=== PATIENT | female | born 1955 | race Caucasian/White ===

== ENCOUNTER 2023-08-30 07:12 | Outpatient (OUT) | payer MEDICARE, SELFPAY ==
[2023-08-30 07:39] LABS: Basophils Absolute Auto 0.1 10^3/uL (0.0-0.1); Eosinophils Absolute Auto 0.2 10^3/uL (0.0-0.7); Eosinophils Percent Auto 3.3 % (0.9-7.0); Hematocrit 43.6 % (36.0-48.0); Hemoglobin 14.4 g/dL (12.0-16.0); Immature Granulocytes Abs Auto 0.01 10^3/uL (0.00-0.03); Immature Granulocytes Pct Auto 0.2 % (0.0-0.5); Lymphocytes Percent Auto 34.9 % (20.5-60.0); Mean Corpuscular Hemoglobin 30.3 pg (26.7-34.0); Mean Corpuscular Volume 91.8 fL (81.0-99.0); Mean Platelet Volume 10.9 fL (9.5-13.5); Monocytes Absolute Auto 0.4 10^3/uL (0.3-0.8); Monocytes Percent Auto 6.9 % (1.7-12.0); Neutrophils Absolute Auto 3.1 10^3/uL (1.4-6.5); Neutrophils Percent Auto 53.7 % (43.0-75.0); Platelet Count 281 10^3/uL (150-450); Red Blood Count 4.75 10^6/uL (4.20-5.40); Red Cell Distribution Width 14.3 % (11.0-15.0); White Blood Count 5.8 10^3/uL (4.0-11.0)
[2023-08-30 07:51] LABS: Estimated Average Glucose 120 mg/dL; Glycohemoglobin A1C 5.8 % (4.5-6.2)
[2023-08-30 08:06] LABS: Alanine Aminotransferase 21 U/L (14-59); Albumin Globulin Ratio 0.9; Albumin Level 3.3 g/dL (3.4-5.0); Alkaline Phosphatase 74 U/L (46-116); Anion Gap 9.7; Aspartate Amino Transferase 13 U/L (15-37); BUN Creatinine Ratio 16.7; Bilirubin Total 0.5 mg/dL (0.2-1.0); Calcium 9.3 mg/dL (8.5-10.1); Carbon Dioxide 30.8 mmol/L (21.0-32.0); Chloride 103 mmol/L (98-107); Cholesterol 226 mg/dL (<=200); Estimated GFR (African America >60 (>=60); Estimated GFR (Non-African Ame >60 (>=60); Free T3 2.83 pg/mL (2.18-3.98); Globulin 3.8 g/dL; Glucose 106 mg/dL (74-106); HDL Cholesterol 56 mg/dL (40-60); Potassium 4.5 mmol/L (3.5-5.1); Sodium 139 mmol/L (136-145); Thyroid Stimulating Hormone 2.347 uIU/mL (0.358-3.740); Total Protein 7.1 g/dL (6.4-8.2); Triglycerides 115 mg/dL (<=150)
== END 2023-08-30 07:13 | disposition home or self-care (01) ==
LOC: LAB 07:16
PROVIDERS: Family Provider Family Medicine; PCP Family Medicine; Visit Provider Family Medicine
DX: H34.9 Unspecified retinal vascular occlusion (principal); G51.0 Bell's palsy; E78.5 Hyperlipidemia, unspecified; R73.09 Other abnormal glucose; D64.9 Anemia, unspecified
CPT/HCPCS: 36415; 80053; 80061; 83036; 83540; 84436; 84443; 84481; 85025

== ENCOUNTER 2023-09-06 07:05 | Outpatient (OUT) | payer MEDICARE, SELFPAY ==
--- OUTSIDE RECORDS SUMMARY | 2023-09-06 07:09 | XMS_ITS | CCD ---
Author Name Unknown Address [address] [facility] [address] [place] [address] Organization [facility] Care Team Providers Care Hardwood Floor Installation Helper Name Role Phone NO, PHYSICIAN Unavailable Unavailable Elgin Mahan Referring Unavailable Elgin Mahan Primary Care Unavailable Self, Referral Attending Unavailable Self, Referral Admitting Unavailable MD Elgin Mahan Primary Care Provider [phone] MD Elgin Mahan Referring Provider Self, Referral Attending Provider Unavailable Daniel Mcclendon Unavailable Marbin LEE Attending Unavailable Elgin Mahan Referring Unavailable Medications Current Medications Medication Drug Class(es) Dates Sig (Normalized) Sig (Original) ibuprofen 200 mg oral tablet (1 source) Nonsteroidal Anti-inflammatory Drug Problems Problem Classification Problem Date Documented Da te Episodic/Chronic Osteoarthritis (3 sources) Primary gonarthrosis, bilateral; Translations: [Bilateral primary osteoarthritis of knee] Chronic Other nervous system disorders (1 source) Chronic pain; Translations: [Other chronic pain] Chronic Other nervous system disorders (1 source) Other chronic pain Chronic Other non-traumatic joint disorders (1 source) Pain in right knee Episodic Other non-traumatic joint disorders (1 source) Pain in left knee Episodic Results Test Name Value Interpretation Reference Range Facil ity Physician Referralon 024 Physician Referral [id number] #1.00TIFF Normal [facility] Physician Referral [id number] #1.00TIFF Normal [facility] MM screening mammo BI w/CADo n 11-24-2022 MM screening mammo BI w/CAD [facility] Main [address] [address] Mammography Report Signed Patient: Stella Diaz MR#: [id number] : 1955 Acct:[id number] Age/Sex: 67 / F ADM Date: 11/24/22 Loc: ID Room: Type: [facility] Attending Dr: Referral Self Copies to: Elgin Mahan MD SELF,REFERRAL Ordering Provider: SELF,REFERRAL Date of Service: 11/24/22 MM/MM screening mammo BI w/CAD: SCREENING BILATERAL Screening Full Field digital mammogram with 3-D imaging. Full field digital CC and MLO imaging performed. CAD utilized. COMPARISON: 06/14/2015 HISTORY: Annual screening BREAST COMPOSITION: The breast is almost entirely fatty. BENIGN BREAST CALCIFICATIONS: Present VASCULAR CALCIFICATIONS: None DEVELOPING ARCHITECTURAL DISTORTION: None DEVELOPING BREAST NODULE: None DEVELOPING MALIGNANT CALCIFICATIONS: None AXILLARY LYMPH NODES: Normal POSTSURGICAL CHANGES: None MM/MM screening mammo BI w/CAD IMPRESSION: No mammographic evidence of malignancy. Routine follow-up recommended in one year. RESULT CODE: 2 Benign Findings(s) DENSITY CODE: 1 (<25% glandular) FOLLOW UP: 1YR THE FALSE-NEGATIVE RATE OF MAMMOGRAPHY IS APPROXIMATELY 10%. IMAGING OF A PALPABLE ABNORMALITY MUST BE BASED ON CLINICAL GROUNDS. PATIENT WAS ENTERED INTO A REMINDER SYSTEM WITH A TARGET DUE DATE FOR THE NEXT MAMMOGRAM. Impression dictated by: Sachin Gabriel M.D.11/24/2022 10:56 AM Dictation Location: [facility] Transcribed By: [facility] 11/24/22 1056 Dictated By: Sachin Gabriel DO 11/24/22 1047 Signed By: 11/24/22 1056 [facility] Vital Signs Date Time Vital Sign Value Performing Clinician Facility 01-11-2023 09:30-0400 Body height 157.48 cm Daniel Mcclendon Other [facility] Other 01-11-2023 09:30-0400 Body mass index (BMI) [Ratio] 33.28 kg/m2 Daniel Mcclendon Other [facility] Other 01-11-2023 09:30-0400 Body weight 82.56 kg Daniel Cleaning [facility] Other 01-11-2023 09:30-0400 Diastolic blood pressure 80 mm[Hg] Daniel Laddky Other [facility] Other 01-11-2023 09:30-0400 SaO2% (BldA) [Mass fraction] 98 % Daniel Hakan Other [facility] Other 01-11-2023 09:30-0400 Systolic blood pressure 122 mm[Hg] Daniel Hakan Other [facility] Other Encounters Encounter Date Encounter Type Care Provider Facility Start: 10-04-2023 ambulatory Marbin LEE Facility :[facility] Start: 08-29-2023 ambulatory Marbin LEE Facility: [facility] Start: 01-11-2023 End: 01-11-2023 ambulatory Daniel Hakan Other [facility] Other Start: 01-11-2023 Office consultation new/estab patient 60 min Daniel Mcclendon [facility] Start: 11-24-2022 End: 11-24-2022 ambulatory Elgin Mahan Facility:[facility] Start: 11-24-2022 End: 11-24-2022 ambulatory MD Elgin Mahan Work Phone: [facility] Work Phone: Start: 11-24-2022 End: 11-24-2022 Patient encounter procedure MD Elgin Mahan Work Phone: [facility] Work Phone: Start: 07-12-2017 Ambulatory PHYSICIAN NO [facility] Procedures Date Procedure Procedure Detail Performing Clinician Start: 11-24-2022 Screening mammograph y of bilateral breasts MD Elgin Mahan Work Phone: Payers Date Payer Category Payer Self-pay 2020 Medicare [id number] 2020 Private Health Insurance CLI [id number] 1955 Unknown [id number] 1955 Unknown [id number] Private Health Insurance [employer] [id number] Unknown [id number] Social History Date Type Detail Facility Tobacco smoking stat [facility] Unknown if ever smoked [facility] Work Phone: Start: 1955 Sex Assigned At Female F [facility] Evaluation note Note Date & Type Note Facility Evaluation note No assessment information availa ble [facility] Work Phone: Evaluation note Note Date & Type Note Facility Evaluation note [facility] Other History general Narrative - Reported Note Date & Type Note Facility History general Narrative - Reported [facility] Other Summary Purpose Family History No Family History Records FoundNo Family History Records FoundNo Family History Records Found Advance Directives No Advanced Directives Records Found Advance Directive Response Recorded Date/ Time Advance Directives No November 04 3 7:44am Chief Complaint and Reason for Visit Chief Complaint Screening Additional Source Comments INFORMATION SOURCE (unrecogn ized section and content) DATE CREATED AUTHOR 12/20/2017 [facility] DATE CREATED AUTHOR AUTHOR'S ORGANIZ ATION 12/04/2022 [facility] DATE CREATED AUTHOR AUTHOR'S ORGANIZ ATION 08/29/2023 [facility] Care Teams (unrecognized sec tion and content) Team Status: Active Member Role Status Dates Elgin Mahan MD Primary Care Provider Active Team Status: Inactive Member Role Status Dates Elgin Mahan MD Primary Care Provider, Referring Pr ovider Active Referral Self Attending Provider Active Goals (unrecognized section and content) Goals may be documented in a n alternate section FOR RECORDS PERTAINING TO PATIENTS WHO ARE OR HAVE BEEN ENROLLED IN A CHEMICAL DEPENDENCY/SUBSTANCEABUSE PROGRAM, SOME INFORMATION MAY BE OMITTED. This clinical summary was aggregated from multiple sources. Caution should be exercised in using it in the provision of clinical care. This summary normalizes information from multiple sources, and as a consequence, information in this document may materially change the coding, format and clinical context of patient data. In addition, data may be omitted in some cases. CLINICAL DECISIONS SHOULD BE BASED ON THE PRIMARY CLINICAL RECORDS. [facility]. provides no warranty or guarantee of the accuracy or completeness of information in this document.
--- NOTE | 2023-09-06 07:13 | MR_ITS ---
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 TECHNIQUE: Multiplanar multisequence MR imaging of the brain was performed without intravenous contrast. 3-D kyfj-nx-qrpsrh noncontrast MR imaging of the head was performed with maximum intensity projection reformats. 2-D ionf-ua-xobbug noncontrast MRV imaging of the head was performed with maximum projection reformats. 2-D and 3-D beqh-pq-uqxhfr noncontrast MRA imaging of the neck was performed with maximum intensity projection reformats. FINDINGS: MR brain and MRA head Calvarium/skull base: No focal marrow replacing lesion suggestive of neoplasm. Orbits: Grossly unremarkable. Paranasal sinuses: Imaged portions clear Brain: No restricted diffusion. No significant white matter disease. No mass effect, hemorrhage, or hydrocephalus. Anterior circulation: No evidence of aneurysm, significant stenosis, or occlusion. Vertebrobasilar system: No evidence of aneurysm, significant stenosis, or occlusion. MRV head Questionable nonocclusive filling defect favored artifactual in nature involving the bilateral transverse sinuses without evidence for occlusion. The superior sagittal sinus and straight sinus are widely patent. Deep cerebral veins and superficial anastomotic veins appear patent. MRA neck Aortic arch: Aortic arch and origin of the aortic arch branch vessels were not included in the apdlu-ja-lova given noncontrast MR technique. Right carotid system: No evidence of significant (50% or greater) stenosis or occlusion. Left carotid system: No evidence of significant (50% or greater) stenosis or occlusion. Vertebral arteries: Codominant. No evidence of significant (50% or greater) stenosis or occlusion. MR/MR angio neck wo con IMPRESSION: 1. No acute intracranial process. 2. Scattered left greater than right supratentorial T2 hyperintense white matter lesions which are abnormal but nonspecific, typically attributed to prior trauma/inflammation/demyelination, or chronic ischemia associated with migraine/atherosclerosis. 3. Questionable nonocclusive filling defect involving the bilateral transverse sinuses which is favored artifactual in nature although could relate to nonocclusive [ dural venous sinus thrombus. Evaluation is slightly suboptimal secondary to lack of intravenous contrast. Consider postcontrast CT venogram head for further evaluation if clinically warranted. 4. No significant stenosis, large vessel occlusion or aneurysm involving the neck arterial vasculature. Electronically authenticated by: JING PINTO Date: 09/06/2023 10:29
--- NOTE | 2023-09-06 07:13 | MR_ITS ---
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 TECHNIQUE: Multiplanar multisequence MR imaging of the brain was performed without intravenous contrast. 3-D vriy-nh-dtnull noncontrast MR imaging of the head was performed with maximum intensity projection reformats. 2-D wxjv-hw-ihvplb noncontrast MRV imaging of the head was performed with maximum projection reformats. 2-D and 3-D texv-os-ykjrpa noncontrast MRA imaging of the neck was performed with maximum intensity projection reformats. FINDINGS: MR brain and MRA head Calvarium/skull base: No focal marrow replacing lesion suggestive of neoplasm. Orbits: Grossly unremarkable. Paranasal sinuses: Imaged portions clear Brain: No restricted diffusion. No significant white matter disease. No mass effect, hemorrhage, or hydrocephalus. Anterior circulation: No evidence of aneurysm, significant stenosis, or occlusion. Vertebrobasilar system: No evidence of aneurysm, significant stenosis, or occlusion. MRV head Questionable nonocclusive filling defect favored artifactual in nature involving the bilateral transverse sinuses without evidence for occlusion. The superior sagittal sinus and straight sinus are widely patent. Deep cerebral veins and superficial anastomotic veins appear patent. MRA neck Aortic arch: Aortic arch and origin of the aortic arch branch vessels were not included in the dmjig-cz-qbnb given noncontrast MR technique. Right carotid system: No evidence of significant (50% or greater) stenosis or occlusion. Left carotid system: No evidence of significant (50% or greater) stenosis or occlusion. Vertebral arteries: Codominant. No evidence of significant (50% or greater) stenosis or occlusion. MR/MR angio head wo con IMPRESSION: 1. No acute intracranial process. 2. Scattered left greater than right supratentorial T2 hyperintense white matter lesions which are abnormal but nonspecific, typically attributed to prior trauma/inflammation/demyelination, or chronic ischemia associated with migraine/atherosclerosis. 3. Questionable nonocclusive filling defect involving the bilateral transverse sinuses which is favored artifactual in nature although could relate to nonocclusive [ dural venous sinus thrombus. Evaluation is slightly suboptimal secondary to lack of intravenous contrast. Consider postcontrast CT venogram head for further evaluation if clinically warranted. 4. No significant stenosis, large vessel occlusion or aneurysm involving the neck arterial vasculature. Electronically authenticated by: JING PINTO Date: 09/06/2023 10:29
--- NOTE | 2023-09-06 07:13 | MR_ITS ---
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 TECHNIQUE: Multiplanar multisequence MR imaging of the brain was performed without intravenous contrast. 3-D shco-pi-aeevek noncontrast MR imaging of the head was performed with maximum intensity projection reformats. 2-D ybbn-vi-fhrylp noncontrast MRV imaging of the head was performed with maximum projection reformats. 2-D and 3-D rknu-mg-krzlbg noncontrast MRA imaging of the neck was performed with maximum intensity projection reformats. FINDINGS: MR brain and MRA head Calvarium/skull base: No focal marrow replacing lesion suggestive of neoplasm. Orbits: Grossly unremarkable. Paranasal sinuses: Imaged portions clear Brain: No restricted diffusion. No significant white matter disease. No mass effect, hemorrhage, or hydrocephalus. Anterior circulation: No evidence of aneurysm, significant stenosis, or occlusion. Vertebrobasilar system: No evidence of aneurysm, significant stenosis, or occlusion. MRV head Questionable nonocclusive filling defect favored artifactual in nature involving the bilateral transverse sinuses without evidence for occlusion. The superior sagittal sinus and straight sinus are widely patent. Deep cerebral veins and superficial anastomotic veins appear patent. MRA neck Aortic arch: Aortic arch and origin of the aortic arch branch vessels were not included in the uldsb-os-zfzm given noncontrast MR technique. Right carotid system: No evidence of significant (50% or greater) stenosis or occlusion. Left carotid system: No evidence of significant (50% or greater) stenosis or occlusion. Vertebral arteries: Codominant. No evidence of significant (50% or greater) stenosis or occlusion. MR/MR venography head wo con IMPRESSION: 1. No acute intracranial process. 2. Scattered left greater than right supratentorial T2 hyperintense white matter lesions which are abnormal but nonspecific, typically attributed to prior trauma/inflammation/demyelination, or chronic ischemia associated with migraine/atherosclerosis. 3. Questionable nonocclusive filling defect involving the bilateral transverse sinuses which is favored artifactual in nature although could relate to nonocclusive [ dural venous sinus thrombus. Evaluation is slightly suboptimal secondary to lack of intravenous contrast. Consider postcontrast CT venogram head for further evaluation if clinically warranted. 4. No significant stenosis, large vessel occlusion or aneurysm involving the neck arterial vasculature. Electronically authenticated by: JING PINTO Date: 09/06/2023 10:29
== END 2023-09-06 07:06 | disposition home or self-care (01) ==
PROVIDERS: Family Provider Family Medicine; PCP Family Medicine; Visit Provider Family Medicine
DX: H34.9 Unspecified retinal vascular occlusion (principal)
CPT/HCPCS: 70544; 70547

== ENCOUNTER 2023-09-07 07:20 | Outpatient (OUT) | payer MEDICARE, SELFPAY ==
--- OUTSIDE RECORDS SUMMARY | 2023-09-07 07:22 | XMS_ITS | CCD ---
Author Name Unknown Address [address] [facility] [address] [place] [address] Organization [facility] Care Team Providers Care Accordion Tuner Name Role Phone NO, PHYSICIAN Unavailable Unavailable Elgin Mahan Referring Unavailable Elgin Mahan Primary Care Unavailable Self, Referral Attending Unavailable Self, Referral Admitting Unavailable MD Elgin Mahan Primary Care Provider [phone] MD Elgin Mahan Referring Provider Self, [...] Facil ity Physician Referralon 024 Physician Referral [id number] #1.00TIFF Normal [facility] Physician Referral [id number] #1.00TIFF Normal [facility] MM screening mammo BI w/CADo n 11-24-2022 MM screening mammo BI w/CAD [facility] [address] [address] Mammography Report Signed Patient: Stella Diaz MR#: [id number] : 1955 Acct:[id number] Age/Sex: 67 / F ADM Date: 11/24/22 Loc: [place] Room: Type: [facility] Attending Dr: Referral Self Copies to: Elgin [...] Sachin Gabriel M.D.11/24/2022 10:56 AM Dictation Location: [facility] Transcribed By: [facility] 11/24/22 1056 Dictated By: Sachin Gabriel DO 11/24/22 1047 Signed By: 11/24/22 1056 [facility] Vital Signs Date Time Vital Sign Value Performing Clinician Facility 01-11-2023 09:30-0400 Body height 157.48 cm Daniel Mcclendon Other [facility] Other 01-11-2023 09:30-0400 Body mass index (BMI) [Ratio] 33.28 kg/m2 Daniel Mcclendon Other [facility] Other 01-11-2023 09:30-0400 Body weight 82.56 kg Daniel Cleaning [facility] Other 01-11-2023 09:30-0400 Diastolic blood pressure 80 mm[Hg] Daniel Laddky Other [facility] Other 01-11-2023 09:30-0400 SaO2% (BldA) [Mass fraction] 98 % Daniel Hakan Other [facility] Other 01-11-2023 09:30-0400 Systolic blood pressure 122 mm[Hg] Daniel Hakan Other [facility] Other Encounters Encounter Date Encounter Type Care Provider Facility Start: 10-04-2023 ambulatory Marbin LEE Facility :[facility] Start: 08-29-2023 ambulatory Marbin LEE Facility: [facility] Start: 01-11-2023 End: 01-11-2023 ambulatory Daniel Hakan Other [facility] Other Start: 01-11-2023 Office consultation new/estab patient 60 min Daniel Mcclendon [facility] Start: 11-24-2022 End: 11-24-2022 ambulatory Elgin Mahan Facility:[facility] Start: 11-24-2022 End: 11-24-2022 ambulatory MD Elgin Mahan Work Phone: [facility] Work Phone: Start: 11-24-2022 End: 11-24-2022 Patient encounter procedure MD Elgin Mahan Work Phone: [facility] Work Phone: Start: 07-12-2017 Ambulatory PHYSICIAN NO [facility] Procedures Date Procedure Procedure Detail Performing Clinician Start: 11-24-2022 Screening mammograph y of bilateral breasts MD Elgin Mahan Work Phone: Payers Date Payer Category Payer Self-pay 2020 Medicare [id number] 2020 Private Health Insurance CLI [id number] 1955 Unknown [id number] 1955 Unknown [id number] Private Health Insurance [employer] [id number] Unknown [id number] Social History Date Type Detail Facility Tobacco smoking stat [facility] Unknown if ever smoked [facility] Work Phone: Start: 1955 Sex Assigned At Female F [facility] Evaluation note Note Date & Type Note Facility Evaluation note No assessment information availa ble [facility] Work Phone: Evaluation note Note Date & Type Note Facility Evaluation note [facility] [employer] Other History general Narrative - Reported Note Date & Type Note Facility History general Narrative - Reported [facility] [employer] Other Summary Purpose Family History No Family History Records FoundNo Family History Records FoundNo Family History Records Found Advance Directives No Advanced Directives Records Found Advance Directive Response Recorded Date/ Time Advance Directives No November 04 3 7:44am Chief Complaint and Reason for Visit Chief Complaint Screening Additional Source Comments INFORMATION SOURCE (unrecogn ized section and content) DATE CREATED AUTHOR 12/20/2017 [facility] DATE CREATED AUTHOR AUTHOR'S ORGANIZ ATION 12/04/2022 [facility] DATE CREATED AUTHOR AUTHOR'S ORGANIZ ATION 08/29/2023 [facility] Care Teams (unrecognized sec tion [...] BE BASED ON THE PRIMARY CLINICAL RECORDS. [facility]. provides no warranty or guarantee of the accuracy or completeness of information in this document.
--- NOTE | 2023-09-07 07:24 | CT_ITS ---
[address] [address] Patient Name: RUDI DIAZ MRN: [id number] date: 1955 Sex: F Assigned Patient Location: [facility] Current Patient Location: RAD Accession/Order Number: [id number] Exam Date: 09/07/2023 07:35 Report Date: 09/07/2023 08:22 At the request of: ELI ALVAREZ Procedure: CT lung screening low-dose EXAM TYPE: CT lung screening low-dose INDICATION: Current smoker COMPARISON: No prior CT scan of the chest available for comparison at the time of this dictation TECHNIQUE: Noncontrast, Low dose, helical axial images of the chest were obtained, and thin section, axial MIP, and coronal and sagittal reformats were also submitted from the acquisition scanner under radiologist supervision. Each series was submitted in a lung algorithm. Dose reduction techniques were achieved by using automated exposure control and/or adjustment of mA and/or kV according to patient size and/or use of iterative reconstruction technique. FINDINGS: Please note that this examination was tailored for evaluation of pulmonary nodules, and therefore soft tissue detail is suboptimal. Heart size within normal limits. No pericardial effusion. Mild coronary artery calcification. No pericardial effusion. No aortic aneurysm. Calcified mediastinal lymph nodes. Mildly enlarged precarinal lymph node 1.0 cm short axis. No central endobronchial nodule. Calcified parenchymal granulomas bilaterally. Mild diffuse centrilobular emphysematous change. No lobar consolidation, pleural effusion or pneumothorax. Subsegmental atelectasis/scar within the lingula and lower lobes bilaterally. No suspicious noncalcified pulmonary nodule. Calcified hepatic and splenic granulomas. No acute findings in the upper abdomen. No acute fracture or dislocation. Spondylosis thoracic spine. CT/CT lung screening low-dose IMPRESSION: 1. Lung RADS Category 1: Negative. LD CT scan of the chest in one year recommended. 2. Mild mediastinal lymphadenopathy. Electronically authenticated by: DILEEP LARA Date: 09/07/2023 08:22
== END 2023-09-07 07:21 | disposition home or self-care (01) ==
LOC: RAD 07:20
PROVIDERS: Family Provider Family Medicine; PCP Family Medicine; Visit Provider Family Medicine
DX: H34.9 Unspecified retinal vascular occlusion (principal); F17.210 Nicotine dependence, cigarettes, uncomplicated
CPT/HCPCS: 71271

== ENCOUNTER 2023-12-07 13:25 | Outpatient (OUT) | payer MEDICARE, SELFPAY ==
--- OUTSIDE RECORDS SUMMARY | 2023-12-07 13:40 | XMS_ITS ---
Patient Summarization (C-CDA 2.1 CCD) Created on: December 07, 2023 STELLA DIAZ : 1955 Sex: Female Author Organization Sample organization Care Team Providers Care Shaving Machine Operator Name Role Phone NO, PHYSICIAN Unavailable Unavailable Elgin Mahan Referring Unavailable Elgin Mahan Primary Care Unavailable Self, Referral Attending Unavailable Self, Referral Admitting Unavailable MD Elgin Mahan Primary Care Provider [phone] MD Elgin Mahan Referring Provider [phone] Self, Referral Attending Provider Unavailable Daniel Mcclendon Unavailable Elgin Mahan Primary Care Physician Marbin LEE Attending Unavailable Elgin Mahan Referring Unavailable Encounters Encounter Date Encounter Type Care Provider Facility Start: 10-25-2023 End: 10-26-2023 [facility] Start: 10-25-2023 End: 10-25-2023 Patient encounter procedure Marbin LEE [facility] Start: 08-29-2023 ambulatory Marbin LEE Facility:[facility] [place] Start: 01-11-2023 End: 01-11-2023 ambulatory Daniel Mcclendon [facility] Other Start: 01-11-2023 Office consultation new/estab patient 60 min Daniel Mcclendon [facility] Start: 11-24-2022 End: 11-24-2022 ambulatory Elgin Mahan Facility:[facility] Start: 11-24-2022 End: 11-24-2022 ambulatory MD Elgin Mahan Work Phone: [facility] Work Phone: Start: 11-24-2022 End: 05-31-2023 Patient encounter procedure MD Elgin Mahan Work Phone: [facility] Work Phone: Start: 07-12-2017 Ambulatory PHYSICIAN NO [facility] Immunizations Immunization Date Immunization Notes Care Provider Sahil vigilaaron 04-07-2023 influenza virus vaccine, unspecified formulation Marbin NILL [facility] 05-15-2021 SARS-CoV-2 (COVID-19 ) mRNA BNT-162b2 vax Marbin NILL [facility] 09-26-2020 SARS-CoV-2 (COVID-19 ) mRNA BNT-162b2 vax Marbin NILL [facility] Comment on above: Reason for Medicatio n: Prophylaxis 09-05-2020 SARS-CoV-2 (COVID-19 ) mRNA BNT-162b2 vax MelbossL [facility] Comment on above: Reason for Medicatio n: Prophylaxis Medications Current Medications Medication Drug Class(es) Dates Sig (Normalized) Sig (Original) ibuprofen 200 mg oral tablet (1 source) Nonsteroidal Anti-inflammatory Drug Multi Vitamins oral tablet (1 source) Start: 08-29-2023 take 1 tablet by mouth once daily Multi Vitamins oral tablet 1 tab(s), Oral, Daily, Refill(s) 0 Start Date: 08/29/23 Status: Ordered Completed/Discontinued Medications Medication Drug Class(es) Dates Sig (Normalized) Sig (Original) cycloSPORINE Opth 0.05% Emul (1 source) Start: 08-29-2023 cycloSPORINE Opth 0.05% Emul 1 drop(s), BID, Refill(s) 0 Start Date: 08/29/23 Status: Ordered Payers Date Payer Category Payer Self-pay 2020 Medicare [id number] 2020 Private Health Insurance CLI [id number] 1955 Unknown [id number] 1955 Unknown [id number] Private Health Insurance [facility] [id number] Unknown [id number] Problems Problem Classification Problem Date Documented Date Episodic/Chronic Hemorrhoids (1 source) Internal hemorrhoids 08-29-2023 Episodic Osteoarthritis (3 sources) Primary gonarthrosis, bilateral; Translations: [Bilateral primary osteoarthritis of knee] Chronic Other nervous system disorders (1 source) Chronic pain; Translations: [Other chronic pain] Chronic Other nervous system disorders (1 source) Other chronic pain Chronic Other nervous system disorders (1 source) 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 Episodic Other non-traumatic joint disorders (1 source) Pain in right knee Episodic Other non-traumatic joint disorders (1 source) Pain in left knee Episodic Other nutritional; endocrine; and metabolic disorders (1 source) Body mass index 30+ - obesity 10-25-2023 Chronic Other nutritional; endocrine; and metabolic disorders (1 source) Obesity caused by energy imbalance 10-25-2023 Chronic Other screening for suspected conditions (not mental disorders or infectious disease) (1 source) Screening for malignant neoplasm of colon done; Translations: [Encounter for screening for malignant neoplasm of colon] Onset: 10-25-2023 Episodic Residual codes; unclassified (1 source) Chronic pain 08-29-2023 Episodic Unclassified (2 sources) Patient encounter status 08-29-2023 Unclassified (1 source) Retinal vein occlusion 08-29-2023 Procedures Date Procedure Procedure Detail Performing Clinician Start: 11-24-2022 Screening mammograph y of bilateral breasts MD Elgin Mahan Work Phone: Start: 02-15-2013 Colonoscopy Marbin ZHU Excision of cyst of ovary Suzan LEE Exploratory laparotomy Sherwin LEE Ligation of fallopian tube Angelo LEE Results Test Name Value Interpretation Reference Range Facil ity Consent for Procedure/Surger yon 10-26-2023 Consent for Procedure/Surgery [id number] #1.00TIFF [facility] Facesheeton 10-26-2023 Facesheet [id number]#1 .00TIFF [facility] Ambulatory Visit Summaryon 0 10-25-2023 Ambulatory Visit Summary STELLA DIAZ :1955 Visit Date:10/25/2023 Ambulatory Visit Instructions Your Diagnosis Screening for malignant neoplasm of colon Your Care Team Attending Physician - ROSA THORNTON, Marbin Boyce Primary Care Physician - Negrito THORNTON, Elgin Referring Physician - Elgin Mahan MD This Is Your Medications List Contact prescribing physician if questions or concerns cycloSPORINE ophthalmic (cycloSPORINE Opth 0.05% Emul) multivitamin (Multi Vitamins oral tablet) Procedures Performed Colonoscopy (02/15/2013), Exploratory laparotomy, Ovarian cystectomy, Tubal ligation. Discharge Vitals Heart Rate (Peripheral) 76 Respiratory Rate 16 Blood Pressure 130/88 Height 154.94 cm Height 61 in Weight 80.1 kg Weight 176.22 lb BMI 33.37 Medications What How Much When Instructions Unchanged cycloSPORINE ophthalmic (cycloSPORINE Opth 0.05% Emul) 1 Drops 2 times a day Contact prescribing physician if questions or concerns Unchanged multivitamin (Multi Vitamins oral tablet) 1 Tablets By Mouth Every day Contact prescribing physician if questions or concerns Allergies No Known Allergies Problems Ongoing - Any problem that you are currently receiving treatment for. Darling's palsy BMI 33.0-33.9,adult Chronic pain Internal hemorrhoids Obesity due to excess calories Retinal vein occlusion Screening for colon cancer Screening for malignant neoplasm of colon Patient Survey You may receive a survey via text or e-mail asking about your office visit. Please share your experience with us by completing your survey. We appreciate your feedback and thank you for choosing us for your care. [facility] Physician Referralon 024 Physician Referral [id number] #[id number] [facility] Physician Referral [id number] #1.00TIFF [facility] MM screening mammo BI w/CADo n 11-24-2022 MM screening mammo BI w/CAD [facility] [place] [address] [place] [address] Mammography Report Signed Patient: Stella Diaz MR#: [id number] : 1955 Acct:[id number] Age/Sex: 67 / F ADM Date: 11/24/22 Loc: [place] Room: Type: [facility] Attending Dr: Referral Self Copies to: [...] Sachin Gabriel M.D.11/24/2022 10:56 AM Dictation Location: [facility] Transcribed By: [facility] 11/24/22 1056 Dictated By: Sachin Gabriel DO 11/24/22 1047 Signed By: 11/24/22 1056 [facility] Social History Date Type Detail Facility Start: 10-25-2023 Tobacco smoking status Heavy t obacco smoker (finding) [facility] Start: 1955 Sex Assigned At Female [facility] Tobacco smoking stat us AZIS Unknown if ever smoked [facility] Work Phone: Tobacco smoking status Never [facility] Sex Assigned At Female [facility] Vital Signs Date Time Vital Sign Value Performing Clinician Facility 10-25-2023 14:21-0400 Blood Pressure Location Marbin LEE [facility] 10-25-2023 14:21-0400 Diastolic blood pressure 88 mm[Hg] Marbin ALEXANDERL [facility] 10-25-2023 14:21-0400 Heart rate 76 /min Marbin Gigathlete [facility] 10-25-2023 14:21-0400 Respiratory rate 16 /min Marbin Gigathlete [facility] 10-25-2023 14:21-0400 Systolic blood pressure 130 mm[Hg] Marbin ALEXANDERRadio Waves [facility] 01-11-2023 09:30-0400 Body height 157.48 cm aDniel Mcclendon Other [facility] Other 01-11-2023 09:30-0400 Body mass index (BMI) [Ratio] 33.28 kg/m2 Daniel Mcclendon Other [facility] Other 01-11-2023 09:30-0400 Body weight 82.56 kg Daniel Mcclendon Other [facility] Other 01-11-2023 09:30-0400 Diastolic blood pressure 80 mm[Hg] Daniel Mcclendon Other [facility] Other 01-11-2023 09:30-0400 SaO2% (BldA) [Mass fraction] 98 % Daniel Mcclendon Other [facility] Other 01-11-2023 09:30-0400 Systolic blood pressure 122 mm[Hg] Daniel Mcclendon Other [facility] Other Functional Status Date Assessment Result Facility 10-25-2023 Functional Status N/A [facility] [place] Clinical Note 10-25-2023 Note Date & Type Note Facility 10-25-2023 Note Chief Complaint consultation for colonoscopy HPI Staff 68 year old female presents on consultation from Dr. Mahan for screening colonoscopy. Denies abdominal or rectal pain. No rectal bleeding or change in bowel habits. Denies nausea or vomiting. No unexplained weight loss. Last colonoscopy completed 01/2013 with hyperplastic sigmoid polyp. No known family history of colon cancer. History of Present Illness 68 yo female referred for colorectal screening; denies change in bms or blood in stools; no abdominal complaints; denies asa or NSAID use, no SBE prophylaxis; abdominal operations significant for exploratory laparotomy, ovarian cystectomy, and tubal ligation; last colonoscopy 2012 with small hyperplastic sigmoid colon polyp removed ; no fmhx of GI malignancy or IBD; smokes daily. Review of Systems PHQ Score Initial Depression Screen Score: 0 SCORE ROS - Provider Constitutional: no fever, no sweats, no weight loss. Eyes: yes glasses, no blurred vision, no visual loss. ENMT: no dentures, no hoarseness, no swallowing difficulties, no hearing loss, no ear infection(s), no nose bleeds. Cardiovascular: normal blood pressure, no chest pain, regular heartbeat, no heart murmur. Respiratory: no shortness of breath, no cough, no asthma, no wheezing. Gastrointestinal: no nausea, no vomiting, no diarrhea, no constipation, no blood in stool, no change in bowel habits, no abdominal pain, no hepatitis. Genitourinary: no kidney stones, no urine infection, no dysuria. Musculoskeletal: no pain, no weakness. Skin: no changing moles, no rash, no skin lumps. Neurologic: no seizures, no epilepsy, no headache. Psychiatric: no emotional or psychiatric problem. Heme/Lymph: no bleeding problems, no anemia, no blood clots, no transfusions. Allergy/Immunologic: no swollen lymph nodes/glands, no IV drug abuse. Other: Additional ROS info: Except as noted in the above Review of Systems and in the History of Present Illness, all other systems have been reviewed and are negative or noncontributory. Physical Exam Vitals & Measurements HR: 76(Peripheral) RR: 16 BP: 130/88 HT: 61 in HT: 154.94 cm WT: 80.1 kg WT: 176.22 lb BMI: 33.37 HEENT: normal conjunctiva, sclera clear, no scleral icterus, EOM intact, PERRLA, oral mucosa moist without lesions. Neck: trachea midline, no mass, symmetric, no thyromegaly or nodules, no adenopathy Respiratory: lungs CTA, respirations non labored. Cardiovascular: regular rate and rhythm, no murmur, no pedal edema or varicosities. Gastrointestinal: soft, non distended, no tenderness, no masses, no palpable hernias, diastasis recti no, no hepatosplenomegaly; normal bs Lymphatic: no cervical adenopathy, no supraclavicular adenopathy. Musculoskeletal: normal gait, digits and nails without infection, nodes, cyanosis, clubbing. Skin: no rashes, no lesions, no ulcers, no subcutaneous nodules, induration. Psychiatric/Neuro: oriented to time, place, person, judgement normal, affect appropriate for age, insight intact, no focal deficits. Tests: , review of old records completed , Discussed surgical options, risks, and possible complications with patient. Assessment/Plan 1. Screening for malignant neoplasm of colon (Z12.11: Encounter for screening for malignant neoplasm of colon) plan colonoscopy under anesthesia, informed consent obtained. Follow-up No qualifying data available Problem List/Past Medical History Ongoing Darling's palsy BMI 33.0-33.9,adult Chronic pain Internal hemorrhoids Obesity due to excess calories Retinal vein occlusion Screening for colon cancer Screening for malignant neoplasm of colon Historical No qualifying data Procedure/Surgical History Colonoscopy (02/15/2013), Exploratory laparotomy, Ovarian cystectomy, Tubal ligation. Medications cycloSPORINE Opth 0.05% Emul, 1 drop(s), BID Multi Vitamins oral tablet, 1 tab(s), Oral, Daily Allergies No Known Allergies Social History Alcohol - Denies Alcohol Use, 10/25/2023 Substance Abuse - Denies Substance Abuse, 10/25/2023 Tobacco 10 or more cigarettes (1/2 pack or more)/day in last 30 days Tobacco Use:. Never Smokeless Tobacco Use:. Cigarettes, 0.5 per day. Started age 30.0 Years. Yes, 10/25/2023 Family History Cardiac arrhythmia: Sister. Heart disease: Sister. Immunizations Vaccine Date Status Comments influenza virus vaccine, inactivated 04/07/2023 Recorded SARS-CoV-2 (COVID-19) mRNA BNT-162b2 vax 05/15/2021 Recorded SARS-CoV-2 (COVID-19) mRNA BNT-162b2 vax 09/26/2020 Given Prophylaxis SARS-CoV-2 (COVID-19) mRNA BNT-162b2 vax 09/05/2020 Given Prophylaxis [facility] Comment on above: Result Comment: Elec tronically Signed By: ROSA THORNTON, Marbin Castillo\Date and Time Signed: 10/25/23 14:48 EDT Evaluation + Plan note Note Date & Type Note Facility Evaluation + Plan note No data available for this section [facility] Evaluation note Note Date & Type Note Facility Evaluation note [facility] Evaluation note Note Date & Type Note Facility Evaluation note [facility] Other History general Narrative - Reported Note Date & Type Note Facility History general Narrative - Reported [facility] Other Hospital Discharge instructions Note Date & Type Note Facility Hospital Discharge instructions No data available for this section [facility] Progress note Note Date & Type Note Facility Progress note No data available for this section [facility] Summary Purpose Family History No Family History Records FoundNo Family History Records Found No data available for this section No Family History Records Found Advance Directives No Advanced Directives Records Found Advance Directive Response Recorded Date/ Time Advance Directives No November 04 3 7:44am Chief Complaint and Reason for Visit Chief Complaint Screening Additional Source Comments INFORMATION SOURCE (unrecogn ized section and content) DATE CREATED AUTHOR 12/20/2017 [facility] DATE CREATED AUTHOR AUTHOR'S ORGANIZ ATION 12/04/2022 [facility] DATE CREATED AUTHOR AUTHOR'S ORGANIZ ATION 10/26/[address] [facility] Care Teams (unrecognized sec tion and content) Team Status: Active Member Role Status Dates Elgin Mahan MD Primary Care Provider Active Team Status: Inactive Member Role Status Dates Elgin Mahan MD Primary Care Provider, Referring Pr ovider Active Referral Self Attending Provider Active Goals (unrecognized section and content) Goals may be documented in a n alternate section No data available for this section FOR RECORDS PERTAINING TO PATIENTS WHO [...] BE BASED ON THE PRIMARY CLINICAL RECORDS. [facility] [employer] provides no warranty or guarantee of the accuracy or completeness of information in this document.
== END 2023-12-07 13:26 | disposition home or self-care (01) ==
LOC: PST 13:25
PROVIDERS: Family Provider Family Medicine; PCP Family Medicine; Visit Provider Surgery
DX: Z01.818 Encounter for other preprocedural examination (principal); Z12.11 Encounter for screening for malignant neoplasm of colon

== ENCOUNTER 2023-12-21 07:14 | Day surgery (SDC) | payer MEDICARE, SELFPAY ==
--- NOTE | 2023-12-21 | OP_ITS ---
OPERATION DATE: 12/21/2023 PREOPERATIVE DIAGNOSIS: Colorectal screening. POSTOPERATIVE DIAGNOSIS: Moderate sigmoid diverticulosis PROCEDURE: Colonoscopy to cecum. SURGEON: Marbin Kim M.D. ANESTHESIA: Monitored anesthesia care. ESTIMATED BLOOD LOSS: Zero. INDICATIONS AND CONSENT: Patient is a 68-year-old female presents for colorectal screening. Indications, risks, benefits, alternatives of proceeding with colonoscopy were explained extensively to the patient, including the risks of bleeding, colon perforation or anesthetic complications. All of her questions were answered. Informed consent was obtained. PROCEDURE: Patient brought to the operating room, placed in the left lateral decubitus position. Monitored anesthesia care was provided. Rectal exam was performed which showed no masses or blood. The scope was inserted into the anal canal. Under direct visualization was advanced. With the aid of abdominal compression, it was advanced to the cecum where cecal markings were clearly identified. Upon withdrawal of the scope, mucosal surfaces were carefully examined. There were no mass lesions or polyps. No inflammatory changes or ulcerations. There was moderate sigmoid diverticulosis without inflammatory changes or scarring. The scope was retroflexed in the anal canal. There was no significant hemorrhoidal disease. Scope was then withdrawn. Patient tolerated procedure well, was sent to recovery room in good condition. follow up screening colonoscopy should be in 10 years if patient is in good health. CC: Elgin Mahan M.D. JABIER
--- OUTSIDE RECORDS SUMMARY | 2023-12-21 07:18 | XMS_ITS | CCD ---
Author Organization [facility] Care Team Providers Care Tabulating Machine Mechanic Name Role Phone NO, PHYSICIAN Unavailable Unavailable Elgin Mahan Referring Unavailable Elgin Mahan Primary Care Unavailable Self, Referral Attending Unavailable Self, Referral Admitting Unavailable MD Elgin Mahan Primary Care Provider [phone] MD Elgin Mahan Referring Provider Self, Referral Attending Provider Unavailable HakanDaniel Unavailable Elgin Mahan Primary Care Physician [phone] Marbin LEE Attending Unavailable Elgin Mahan Referring [...] Refill(s) 0 Start Date: 08/29/23 Status: Ordered Problems Problem Classification Problem Date Documented Date [...] Unclassified (1 source) Retinal vein occlusion 08-29-2023 Results Test Name Value Interpretation Reference Range Facil ity Consent for Procedure/Surger yon 10-26-2023 Consent for Procedure/Surgery [id number] #1.00TIFF Normal [facility] Facesheeton 10-26-2023 Facesheet [id number] .00TIFF Normal [facility] Ambulatory Visit Summaryon 0 10-25-2023 Ambulatory Visit Summary STELLA DIAZ :1955 Visit Date:10/25/2023 Ambulatory Visit Instructions Your Diagnosis Screening for malignant neoplasm of colon Your Care Team Attending Physician - Marbin LEE MD Primary Care Physician - Elgin Mahan MD Referring Physician - Elgin Mahan MD This [...] you for choosing us for your care. Normal [facility] Physician Referralon 024 Physician Referral [id number] #1.00TIFF Normal [facility] Physician Referral [id number] #1.00TIFF Normal [facility] MM screening mammo BI w/CADo n 11-24-2022 MM screening mammo BI w/CAD [facility] [place] [address] [place] [address] Mammography Report Signed Patient: Stella Diaz MR#: [id number] : 1955 Acct:[id number] Age/Sex: 67 / F ADM Date: 11/24/22 Loc: [place] Room: Type: [facility] Attending Dr: Referral Self Copies to: [...] Sachin Gabriel M.D.11/24/2022 10:56 AM Dictation Location: [id number] Transcribed By: [facility] 11/24/22 1056 Dictated By: Sachin Gabriel DO 11/24/22 1047 Signed By: 11/24/22 1056 [facility] Vital Signs Date Time Vital Sign Value Performing Clinician Facility 10-25-2023 14:21-0400 Blood Pressure Location [employer] [facility] 10-25-2023 14:21-0400 Diastolic blood pressure 88 mm[Hg] [employer] [facility] 10-25-2023 14:21-0400 Heart rate 76 /min [employer] [facility] 10-25-2023 14:21-0400 Respiratory rate 16 /min [employer] [facility] 10-25-2023 14:21-0400 Systolic blood pressure 130 mm[Hg] [employer] [facility] 01-11-2023 09:30-0400 Body height 157.48 cm Daniel Mcclendon Other [employer] Other 01-11-2023 09:30-0400 Body mass index (BMI) [Ratio] 33.28 kg/m2 Daniel Mcclendon Other [employer] Other 01-11-2023 09:30-0400 Body weight 82.56 kg Daniel Mcclendon Other [employer] Other 01-11-2023 09:30-0400 Diastolic blood pressure 80 mm[Hg] Daniel Mcclendon Other [employer] Other 01-11-2023 09:30-0400 SaO2% (BldA) [Mass fraction] 98 % Daniel Mcclendon Other [employer] Other 01-11-2023 09:30-0400 Systolic blood pressure 122 mm[Hg] Daniel Laddky Other [employer] Other Encounters Encounter Date Encounter Type Care Provider Facility Start: 10-25-2023 End: 10-26-2023 ambulatory Marbin LEE Facility: [facility] Start: 10-25-2023 End: 10-25-2023 Patient encounter procedure Marbin LEE [facility] Start: 08-29-2023 ambulatory Marbin LEE Facility:[facility] Start: 01-11-2023 End: 01-11-2023 ambulatory Daniel Mcclendon Other [facility] Other Start: 01-11-2023 Office consultation new/estab patient 60 min Daniel Mcclendon [facility] Start: 11-24-2022 End: 11-24-2022 ambulatory Elgin Mahan Facility:[facility] Start: 11-24-2022 End: 11-24-2022 ambulatory MD Elgin Mahan Work Phone: [facility] Work Phone: Start: 11-24-2022 End: 11-24-2022 Patient encounter procedure MD Elgin Mahan Work Phone: [facility] Work Phone: Start: 07-12-2017 Ambulatory PHYSICIAN JENNIFER [facility] Physicians Procedures Date Procedure Procedure Detail Performing Clinician Start: 11-24-2022 Screening mammograph y of bilateral breasts MD Elgin Hoy Work Phone: Start: 02-15-2013 Colonoscopy Marbin PERALES LL Excision of cyst of ovary Suzan lowe NILL Exploratory laparotomy Sherwin rodriguez N[facility] Ligation of fallopian tube Angelo matute [facility] Immunizations Immunization Date Immunization Notes Care Provider [facility] 04-07-2023 influenza virus vaccine, unspecified formulation Marbin LEE [facility] 05-15-2021 SARS-CoV-2 (COVID-19 ) mRNA BNT-162b2 vax Marbin LEE [facility] 09-26-2020 SARS-CoV-2 (COVID-19 ) mRNA BNT-162b2 vax Marbin LEE [facility] Comment on above: Reason for Medicatio n: Prophylaxis 09-05-2020 SARS-CoV-2 (COVID-19 ) mRNA BNT-162b2 vax Marbin LEE [facility] Comment on above: Reason for Medicatio n: Prophylaxis Payers Date Payer Category Payer Self-pay 2020 Medicare [id number] 2020 Private Health Insurance CLI [id number] 1955 Unknown [id number] 1955 Unknown [id number] Private Health Insurance [employer] [id number] Unknown [id number] Social History Date Type Detail Facility Tobacco smoking stat [facility] Unknown if ever smoked [facility] Work Phone: Start: 1955 Sex Assigned At Female [facility] Start: 10-25-2023 Tobacco smoking status Heavy t obacco smoker (finding) [facility] Tobacco smoking status Never [facility] Sex Assigned At Female [facility] Functional Status Date Assessment Result Facility 10-25-2023 Functional Status N/A [facility] Clinical Note 10-25-2023 Note Date & Type [...] (COVID-19) mRNA BNT-162b2 vax 09/05/2020 Given Prophylaxis [facility] Comment on above: Result Comment: Elec tronically Signed By: ROSA THORNTON, Marbin Castillo\Date and Time Signed: 10/25/23 14:48 EDT Evaluation + Plan note Note Date & Type Note Facility Evaluation + Plan note No data available for this section [facility] Evaluation note Note Date & Type Note Facility [facility] Evaluation note Note Date & Type Note Facility Evaluation note [facility] [employer] Other History general Narrative - Reported Note Date & Type Note Facility History general Narrative - Reported [facility] [employer] Other Hospital Discharge instructions Note Date & Type Note Facility Hospital Discharge instructions No data available for this section [facility] Progress note Note Date & Type Note Facility Progress note No data available for this section [facility] Summary Purpose Family History No [...] section and content) DATE CREATED AUTHOR 12/20/2017 [facility] DATE CREATED AUTHOR AUTHOR'S ORGANIZ ATION 12/04/2022 [facility] DATE CREATED AUTHOR AUTHOR'S ORGANIZ ATION 10/26/2023 Hao Albright [facility] Care Teams (unrecognized sec tion and [...] BE BASED ON THE PRIMARY CLINICAL RECORDS. [employer] provides no warranty or guarantee of the accuracy or completeness of information in this document.
[2023-12-21 07:29] VITALS: BMI 32.8
[2023-12-21] MEDS: LACTATED RINGER'S SOLUTION 1,000 ML 50 ML IV ×2 (07:41→09:31)
[2023-12-21 09:35] VITALS: BP 106/50; PULSE 61; TEMP 36.1; O2SAT 99
[2023-12-21 09:50] VITALS: BP 115/67; PULSE 60
[2023-12-21 10:05] VITALS: BP 126/75; PULSE 55; O2SAT 98
== END 2023-12-21 10:05 | disposition home or self-care (01) ==
PROVIDERS: Family Provider Family Medicine; PCP Family Medicine; Visit Provider Surgery
PROC: (CPT G0121; principal; 2023-12-21 08:10)
DX: Z12.11 Encounter for screening for malignant neoplasm of colon (principal); K57.30 Diverticulosis of large intestine without perforation or abscess without bleeding; Z86.010 Personal history of colon polyps; Z98.51 Tubal ligation status; F17.210 Nicotine dependence, cigarettes, uncomplicated
CPT/HCPCS: G0121; J2001; J2371; J2704